=== PATIENT | female | born 1975 | race African-American/Black ===

== ENCOUNTER → 2017-05-16 | Outpatient (CLI) | payer OTHER | END | disposition home or self-care (01) | LOC: EEG 09:43 | PROVIDERS: ATTEND Psychiatry & Neurology Neurology | DX: G40.909 Epilepsy, unspecified, not intractable, without status epilepticus (principal) | CPT/HCPCS: 95819 ==

== ENCOUNTER 2018-07-03 15:14 | Emergency (ER) | payer OTHER ==
[~2018-07-03] VITALS: Ht 157.5 cm; Wt 120.5 kg
--- NOTE | 2018-07-03 15:24 | ERD ---
ER Documentation Chief Complaint Chief Complaint Seizure HPI The patient is a 43-year-old female, presenting to the ER because of recurrent seizure, generalized clonic tonic, lasted for approximately 3 minutes witnessed by her daughter. She ran out of her medication for the last 2 days, she normally takes Topamax 200 mg twice a day and Lamictal 200 mg twice a day, denies head trauma, syncope, near syncope, tongue bite, fecal/urinary incontinence, neck pain, chest pain, dyspnea, abdominal pain, vomiting, diarrhea. She does not smoke nor drink Past medical history: Hypertension, asthma, epilepsy Past surgical history: , breast reduction ROS All systems reviewed and are negative except as per history of present illness. Medications Home Meds Active Scripts Lamotrigine* (Lamictal*) 200 Mg Tablet, 200 MG PO BID for 7 Days, TAB Prov:TODD PATEL MD 07/03/18 Topiramate* (Topamax*) 25 Mg Cap.sprink, 200 MG PO BID for 7 Days, CAP Prov:TODD PATEL MD 07/03/18 Allergies Allergies: Coded Allergies: No Known Drug Allergies (Verified Allergy, Unknown, 07/03/18) Physical Exam Vitals Vital Signs Date Temp Pulse Resp B/P (MAP) Pulse Ox O2 O2 Flow FiO2 Time Delivery Rate 07/03/18 78 17 112/78 100 Room Air 17:55 (89) 07/03/18 77 17 117/78 100 Room Air 17:02 (91) 07/03/18 98.4 92 17 114/56 97 15:33 (75) Physical Exam Const: No acute distress. Head: Atraumatic. Eyes: Normal Conjunctiva. ENT: Normal External Ears, Nose and Mouth. Neck: Full range of motion. No meningismus. Resp: Clear to auscultation bilaterally. Cardio: Regular rate and rhythm. Abd: Soft, non distended, normal bowel sounds, non tender. Skin: No petechiae or rashes. Back: No midline or flank tenderness. Ext: No cyanosis, or edema. Neur: Awake and alert. No focal deficit. Psych: Normal Mood and Affect. Result Diagram: 07/03/18 1641 07/03/18 1641 Results 24 hrs Laboratory Tests Test 07/03/18 16:32 07/03/18 16:41 Bedside Glucose 105 mg/dL White Blood Count 6.3 10^3/ul Red Blood Count 4.26 10^6/ul Hemoglobin 10.9 g/dl Hematocrit 35.4 % Mean Corpuscular Volume 83.1 fl Mean Corpuscular Hemoglobin 25.6 pg Mean Corpuscular Hemoglobin Concent 30.8 g/dl Red Cell Distribution Width 16.5 % Platelet Count 225 10^3/UL Mean Platelet Volume 11.6 fl Immature Granulocytes % 0.500 % Neutrophils % 57.7 % Lymphocytes % 32.3 % Monocytes % 6.2 % Eosinophils % 3.0 % Basophils % 0.3 % Nucleated Red Blood Cells % 0.0 /100WBC Immature Granulocytes # 0.030 10^3/ul Neutrophils # 3.6 10^3/ul Lymphocytes # 2.0 10^3/ul Monocytes # 0.4 10^3/ul Eosinophils # 0.2 10^3/ul Basophils # 0.0 10^3/ul Nucleated Red Blood Cells # 0.0 10^3/ul Sodium Level 140 mmol/L Potassium Level 3.1 mmol/L Chloride Level 106 mmol/L Carbon Dioxide Level 25 mmol/L Anion Gap 9 Blood Urea Nitrogen 11 mg/dl Creatinine 0.69 mg/dl Est Glomerular Filtrat Rate mL/min > 60 mL/min Glucose Level 110 mg/dl Calcium Level 9.0 mg/dl Current Medications Medications Dose Sig/Kavita Start Time Status Last (Trade) Ordered Route PRN Stop Time Admin Dose Reason Admin Topiramate 200 mg ONCE ONCE 07/03/18 DC 07/03/18 (Topamax) PO 16:00 07/03/18 16:36 16:01 Lamotrigine 200 mg ONCE ONCE 07/03/18 DC 07/03/18 (Lamictal) PO 16:00 07/03/18 16:35 16:01 Potassium 40 meq ONCE STAT 07/03/18 DC 07/03/18 Chloride PO 17:31 07/03/18 17:59 (Klor-Con 20) 17:32 Procedures/MDM MEDICAL MAKING DECISION: The patient is a 43-year-old female, presenting with acute recurrent seizure due to medical noncompliance, acute hypokalemia. She was treated with her normal dose of Topamax to 200 mg and Lamictal 200 mg po for recurrent seizure, potassium chloride 40 mEq p.o. for acute hypokalemia with good response. She has been observed in the ER for many hours with any recurrent symptoms, is stable for outpatient follow-up The differential diagnoses considered include but are not limited to medical noncompliance, seizure disorder, electrolyte imbalance, cardiac arrhythmia Departure Diagnosis: Primary Impression: Recurrent seizures Additional Impressions: Hypokalemia Anemia Condition: Good Comments She was discharged with 1 week worth of Topamax and Lamictal I discussed the findings with the patient. I advised the patient to follow-up with her neurologist in about 1-2 days, sooner if needed and return if any concern. Disclaimer: Inadvertent spelling and grammatical errors are likely due to EHR/dictation software use and do not reflect on the overall quality of patient care. Also, please note that the electronic time recorded on this note does not necessarily reflect the actual time of the patient encounter. TODD PATEL MD Jul 03, 2018 15:24
[2018-07-03 15:33] VITALS: Ht 157.5 cm; Wt 120.5 kg
[2018-07-03] MEDS ORDERED: LAMOTRIGINE 100 MG TAB PO ONE (16:00)
[2018-07-03] MEDS ORDERED: TOPIRAMATE 100 MG TAB PO ONE (16:00)
[2018-07-03] MEDS ORDERED: TOPI25CA PO (17:04)
[2018-07-03] MEDS ORDERED: LAMO200T3 PO (17:04)
[2018-07-03] MEDS ORDERED: POTASSIUM CHLORIDE (SR) 20 MEQ TAB PO STA (17:31)
[2018-07-03 17:55] VITALS: BP 112/78; PULSE 78; RESP 17
== END 2018-07-03 18:18 | disposition home or self-care (01) ==
LOC: E/R 15:14
DX: R56.9 Unspecified convulsions (principal); R40.2142 Coma scale, eyes open, spontaneous, at arrival to emergency department; R40.2362 Coma scale, best motor response, obeys commands, at arrival to emergency department; R40.2252 Coma scale, best verbal response, oriented, at arrival to emergency department; E87.6 Hypokalemia; D64.9 Anemia, unspecified; I10 Essential (primary) hypertension; J45.909 Unspecified asthma, uncomplicated
CPT/HCPCS: 36415; 80048; 82962; 85025; Z7502; Z7610; 99283